=== PATIENT | female | born 1965 | race Caucasian/White ===

== ENCOUNTER 2017-11-06 08:48 | Day surgery (SDC) | payer OTHER | END 2017-11-06 15:20 | disposition home or self-care (01) | LOC: CIR.AMB 08:48 | DX: M65.332 Trigger finger, left middle finger (principal); M67.442 Ganglion, left hand ==

== ENCOUNTER 2022-05-16 06:48 | Day surgery (SDC) | payer OTHER ==
[~2022-05-16] VITALS: Ht 160 cm; Wt 81.6 kg
== END 2022-05-16 14:30 | disposition home or self-care (01) ==
LOC: CIR.AMB 06:48
PROVIDERS: ATTEND Orthopaedic Surgery Hand Surgery
DX: M65.331 Trigger finger, right middle finger (principal); Z20.822 Contact with and (suspected) exposure to COVID-19